=== PATIENT | male | born 1970 | race Caucasian/White ===

== ENCOUNTER 2018-09-22 09:51 | Emergency (ER) | payer SELFPAY ==
[2018-09-22] MEDS ORDERED: KETOROLAC 30 MG/ML INJ ONE (11:29)
[2018-09-22 11:41] LABS: Absolute Lymphocytes (CBC) 1.5 K/uL (0.7-4.9); Absolute Monocytes 0.4 K/uL (0.1-1.3); Absolute Neutrophil 3.8 K/uL (1.8-8.0); Basophils % 0.8 % (0-1.3); Eosinophils % 0.4 % (0-4.4); Hematocrit 41.4 % (39.6-49.0); Lymphocytes % 26.5 % (15.3-44.8); MPV 10.3 fL (7.6-11.3); Monocytes % 7.6 % (3.3-12.3); RBC Red Blood Cell Count 4.28 M/uL (4.33-5.43)
[2018-09-22 12:01] LABS: ALT/SGPT 78 U/L (12-78); AST/SGOT 97 U/L (15-37); Albumin 2.9 g/dL (3.4-5.0); Alkaline Phosphatase 125 U/L (45-117); BUN Blood Urea Nitrogen 5 mg/dL (7-18); Bicarbonate 24 mmol/L (21-32); Bilirubin Direct 0.2 mg/dL (0-0.2); Bilirubin Total 0.6 mg/dL (0.2-1.0); Glucose Level 101 mg/dL (74-106); Lipase 349 U/L (73-393); Potassium 3.7 mmol/L (3.5-5.1); Protein, Total 7.8 g/dL (6.4-8.2); Sodium Level 138 mmol/L (136-145)
--- NOTE | 2018-09-22 12:21 | ER ---
Nurse's Notes [facility] Name: Mk Leonardo II Age: 48 yrs Sex: Male : 1970 Arrival Date: 09/22/2018 Time: 09:53 Bed 7 Private MD: None, None Diagnosis: Unspecified hemorrhoids Presentation: 09/22 10:08 Presenting complaint: Patient states: bright red rectal bleeding since yesterday around mid day. pt used prepraration H and it got worse. today he states he has soaked thru several pairs of underwear and pants. Transition of care: patient was not received from another setting of care. Onset of symptoms was September 21, 2018 at 12:00. Risk Assessment: Do you want to hurt yourself or someone else? Patient reports no desire to harm self or others. Initial Sepsis Screen: Does the patient meet any 2 criteria? No. Patient's initial sepsis screen is negative. Does the patient have a suspected source of infection? No. Patient's initial sepsis screen is negative. Care prior to arrival: None. 10:08 Method Of Arrival: Ambulatory 10:08 Acuity: QUINCY 3 Triage Assessment: 10:12 General: Appears in no apparent distress. uncomfortable, Behavior is calm, cooperative, ch appropriate for age. Pain: Complains of pain in anus Pain currently is 4 out of 10 on a pain scale. at worst was 9 out of 10 on a pain scale. Neuro: No deficits noted. Respiratory: Airway is patent Respiratory effort is even, unlabored, Breath sounds are coarse bilaterally. GI: Abdomen is flat, non-distended, Bowel sounds present X 4 quads. Abd is soft and non tender X 4 quads. Reports rectal bleeding. Derm: Skin is pink, warm \T\ dry. Musculoskeletal: No signs and/or symptoms reported regarding the musculoskeletal system. Historical: - Allergies: 10:12 No Known Allergies; ch - Home Meds: 10:12 Norvasc Oral [Active]; losartan oral oral [Active]; CoQ-10 100 mg oral cap [Active]; ch nugenix [Active]; - PMHx: 10:12 Hypertension; angina 20 yrs ago resolved; hemorrhoids; ch - PSHx: 10:12 Hernia repair; Vasectomy; - Immunization history:: Adult Immunizations up to date, Pneumococcal vaccine is not up to date, Flu vaccine is not up to date. - Social history:: Smoking status: Patient uses tobacco products, smokes one pack cigarettes per day. Patient uses alcohol, claims drinking about a 6 pack/day. patient/guardian reports chronic longstanding heavy alcohol consumption. Patient/guardian denies using street drugs, Patient/guardian denies using alcohol, The patient lives with family. - Ebola Screening: : Patient negative for fever greater than or equal to 101.5 degrees Fahrenheit, and additional compatible Ebola Virus Disease symptoms Patient denies exposure to infectious person Patient denies travel to an Ebola-affected area in the 21 days before illness onset No symptoms or risks identified at this time. - Family history:: not pertinent. Screenin:14 Abuse screen: Denies threats or abuse. Denies injuries from another. Nutritional screening: No deficits noted. Tuberculosis screening: No symptoms or risk factors identified. Fall Risk None identified. Assessment: 10:14 Reassessment: Patient appears in no apparent distress at this time. No changes from previously documented assessment. Patient and/or family updated on plan of care and expected duration. Pain level reassessed. Patient is alert, oriented x 3, equal unlabored respirations, skin warm/dry/pink. 11:30 Reassessment: Patient appears in no apparent distress at this time. No changes from previously documented assessment. Patient and/or family updated on plan of care and expected duration. Pain level reassessed. Patient is alert, oriented x 3, equal unlabored respirations, skin warm/dry/pink. 12:30 Reassessment: Patient appears in no apparent distress at this time. Patient and/or family updated on plan of care and expected duration. Pain level reassessed. Patient is alert, oriented x 3, equal unlabored respirations, skin warm/dry/pink. Patient states symptoms have not improved. Vital Signs: 10:12 BP 150 / 79; Pulse 100; Resp 16; Temp 98.6; Pulse Ox 99% on R/A; Weight 80.29 kg; Height 5 ft. 7 in. (170.18 cm); Pain 4/10; 12:50 BP 148 / 86; Pulse 92; Resp 14; Temp 98.1; Pulse Ox 99% on R/A; Pain 4/10; 10:12 Body Mass Index 27.72 (80.29 kg, 170.18 cm) ED Course: 09:53 Patient arrived in ED. mr 09:53 None, None is Private Physician. mr 10:07 Ronald Cook MD is Attending Physician. ma2 10:08 Dayana Kahn, RN is Primary Nurse. 10:10 Triage completed. ch 10:12 Arm band placed on left wrist. Patient placed in an exam room, on a stretcher, on pulse oximetry. 10:14 No apparent distress. Resting quietly. ch 10:14 Patient has correct armband on for positive identification. Placed in gown. Bed in low ch position. Call light in reach. Adult w/ patient. Pulse ox on. NIBP on. Warm blanket given. 11:14 Inserted saline lock: 20 gauge in right antecubital area, using aseptic technique. pc1 12:19 Dante Sparks MD is Referral Physician. ma2 12:50 No provider procedures requiring assistance completed. IV discontinued, intact, ch bleeding controlled, No redness/swelling at site. Pressure dressing applied. Administered Medications: 11:18 Drug: TORadol 60 mg Route: IM; Site: right ventrogluteal; ch 12:41 Follow up: Response: No adverse reaction; No change in condition Outcome: 12:20 Discharge ordered by . ma2 12:50 Attestation : I agree with students charting. 12:50 Discharged to home ambulatory, with family. 12:50 Condition: stable 12:50 Discharge instructions given to patient, family, Instructed on discharge instructions, follow up and referral plans. no drinking with medication, no driving heavy equipment, medication usage, Demonstrated understanding of instructions, follow-up care, medications, Prescriptions given X 3. 13:03 Patient left the ED. Signatures: Dayana Kahn, RN Micheline Carmen ch Dante Cavazos RN RN Ronald Cook MD MD ma2 Cantu, Patrick pc1
--- NOTE | 2018-09-22 12:21 | EDPHYS ---
Physician Documentation [facility] Name: Mk Leonardo II Age: 48 yrs Sex: Male : 1970 Arrival Date: 09/22/2018 Time: 09:53 Bed 7 Private MD: None, None ED Physician Ronald Cook HPI: 09/22 12:15 This 48 yrs old Male presents to ER via Ambulatory with complaints of Rectal ma2 Bleeding. 12:15 The patient presents to the emergency department with bleeding from the rectum/anus, ma2 that is mild, pain in the rectal area, that is moderate. Onset: The symptoms/episode began/occurred gradually, 2 day(s) ago. Context: the patient has a known history of hemorrhoids. Associate signs and symptoms: Pertinent positives: constipation, Pertinent negatives: abdominal pain, diarrhea, dysuria, fever, lower GI bleeding. The patient has not experienced similar symptoms in the past. Historical: - Allergies: 10:12 No Known Allergies; ch - Home Meds: 10:12 Norvasc Oral [Active]; losartan oral oral [Active]; CoQ-10 100 mg oral cap [Active]; ch nugenix [Active]; - PMHx: 10:12 Hypertension; angina 20 yrs ago resolved; hemorrhoids; ch - PSHx: 10:12 Hernia repair; Vasectomy; ch - Immunization history:: Adult Immunizations up to date, Pneumococcal vaccine is not up to date, Flu vaccine is not up to date. - Social history:: Smoking status: Patient uses tobacco products, smokes one pack cigarettes per day. Patient uses alcohol, claims drinking about a 6 pack/day. patient/guardian reports chronic longstanding heavy alcohol consumption. Patient/guardian denies using street drugs, Patient/guardian denies using alcohol, The patient lives with family. - Ebola Screening: : Patient negative for fever greater than or equal to 101.5 degrees Fahrenheit, and additional compatible Ebola Virus Disease symptoms Patient denies exposure to infectious person Patient denies travel to an Ebola-affected area in the 21 days before illness onset No symptoms or risks identified at this time. - Family history:: not pertinent. ROS: 12:15 Constitutional: Negative for fever, chills, and weight loss. ma2 12:15 Cardiovascular: Negative for chest pain, palpitations, and edema, Respiratory: Negative for shortness of breath, cough, wheezing, and pleuritic chest pain, Abdomen/GI: Negative for abdominal pain, nausea, diarrhea, and constipation, : Negative for injury, bleeding, discharge, and swelling, MS/Extremity: Negative for injury and deformity, Allergy/Immunology: Negative for hives, rash, and allergies, Endocrine: Negative for neck swelling, polydipsia, polyuria, polyphagia, and marked weight changes. 12:15 Abdomen/GI: Positive for rectal pain, rectal bleeding, Negative for nausea, vomiting, and diarrhea, diarrhea, anorexia, dysphagia. 12:15 : Positive for 12:15 : Positive for Negative for 12:15 All other systems are negative. Exam: 12:15 Constitutional: This is a well developed, well nourished patient who is awake, alert, ma2 and in no acute distress. Chest/axilla: Normal chest wall appearance and motion. Nontender with no deformity. No lesions are appreciated. Cardiovascular: Regular rate and rhythm with a normal S1 and S2. No gallops, murmurs, or rubs. Normal PMI, no JVD. No pulse deficits. Respiratory: Lungs have equal breath sounds bilaterally, clear to auscultation and percussion. No rales, rhonchi or wheezes noted. No increased work of breathing, no retractions or nasal flaring. Abdomen/GI: Soft, non-tender, with normal bowel sounds. No distension or tympany. No guarding or rebound. No evidence of tenderness throughout. Skin: Warm, dry with normal turgor. Normal color with no rashes, no lesions, and no evidence of cellulitis. MS/ Extremity: Pulses equal, no cyanosis. Neurovascular intact. Full, normal range of motion. Neuro: Awake and alert, GCS 15, oriented to person, place, time, and situation. Cranial nerves II-XII grossly intact. Motor strength 5/5 in all extremities. Sensory grossly intact. Cerebellar exam normal. Normal gait. 12:15 Abdomen/GI: Inspection: abdomen appears normal, Palpation: soft, Rectal exam: Prostate: normal, rectal tone normal, hemorrhoid(s), external, with inflammation, with pain, without bleeding, without thrombosis, Hernia: not appreciated. Vital Signs: 10:12 BP 150 / 79; Pulse 100; Resp 16; Temp 98.6; Pulse Ox 99% on R/A; Weight 80.29 kg; ch Height 5 ft. 7 in. (170.18 cm); Pain 4/10; 12:50 BP 148 / 86; Pulse 92; Resp 14; Temp 98.1; Pulse Ox 99% on R/A; Pain 4/10; ch 10:12 Body Mass Index 27.72 (80.29 kg, 170.18 cm) ch MDM: 10:07 Patient medically screened. ma2 12:15 Differential diagnosis: hemorrhoids. Data reviewed: vital signs, nurses notes. ma2 Counseling: I had a detailed discussion with the patient and/or guardian regarding: the historical points, exam findings, and any diagnostic results supporting the discharge/admit diagnosis, the presence of at least one elevated blood pressure reading (>120/80) during this emergency department visit, the need for outpatient follow up. ED course: no active bleeding, pain controlled here vs wnl, no melena, hb wnl . 09/22 10:19 Order name: Basic Metabolic Panel; Complete Time: 12:14 tn2 09/22 10:19 Order name: CBC with Diff ma2 09/22 10:19 Order name: Creatinine for Radiology; Complete Time: 12:14 tn2 09/22 10:19 Order name: Hepatic Function; Complete Time: 12:14 tn2 09/22 10:19 Order name: Lipase; Complete Time: 12:14 tn2 09/22 10:19 Order name: IV Saline Lock; Complete Time: 12:42 tn2 09/22 10:19 Order name: Labs collected and sent; Complete Time: 12:42 tn2 09/22 11:49 Order name: CBC Smear Scan EDMS Administered Medications: 11:18 Drug: TORadol 60 mg Route: IM; Site: right ventrogluteal; ch 12:41 Follow up: Response: No adverse reaction; No change in condition ch Disposition: 09/22/18 12:20 Discharged to Home. Impression: Unspecified hemorrhoids. - Condition is Stable. - Discharge Instructions: High-Fiber Diet, Hemorrhoids, Uxil-nh-Ihoz, Disposable Sitz Bath, Nonsurgical Procedures for Hemorrhoids, Care After. - Prescriptions for Colace 100 mg Oral Tablet - take 1 tablet by ORAL route every 12 hours; 14 tablet. Tylenol- Codeine #3 300-30 mg Oral Tablet - take 2 tablet by ORAL route every 6 hours As needed; 30 tablet. Lidocaine Viscous - Apply to affected area 1 application by RECTAL route 2-4 times daily for 8-10 days; 1 box. - Work release form, Medication Reconciliation Form, Thank You Letter, Antibiotic Education, Prescription Opioid Use form. - Follow up: Dante Sparks MD; When: Tomorrow; Reason: Continuance of care. Signatures: Dispatcher [employer] EDPR Dayana Kahn RN RN Dante Cavazos RN RN Ronald Cook MD MD ma2 Corrections: (The following items were deleted from the chart) 11:40 10:32 CBC without Diff+H.LAB.BRZ ordered. EDPR EDMS 12:21 12:20 09/22/2018 12:20 Discharged to Home. Impression: Hemorrhoids in the puerperium. ma2 Condition is Stable. Prescriptions for Colace 100 mg Oral Tablet - take 1 tablet by ORAL route every 12 hours; 14 tablet, Tylenol-Codeine #3 300-30 mg Oral Tablet - take 2 tablet by ORAL route every 6 hours As needed; 30 tablet. and Forms are Medication Reconciliation Form, Thank You Letter, Antibiotic Education, Prescription Opioid Use. Follow up: Dante Sparks; When: Tomorrow; Reason: Continuance of care. ma2 13:03 12:21 09/22/2018 12:20 Discharged to Home. Impression: Unspecified hemorrhoids. hj Condition is Stable. Prescriptions for Colace 100 mg Oral Tablet - take 1 tablet by ORAL route every 12 hours; 14 tablet, Tylenol-Codeine #3 300-30 mg Oral Tablet - take 2 tablet by ORAL route every 6 hours As needed; 30 tablet. and Forms are Medication Reconciliation Form, Thank You Letter, Antibiotic Education, Prescription Opioid Use. Follow up: Dante Sparks; When: Tomorrow; Reason: Continuance of care. ma2
[2018-09-22 14:13] LABS: Platelet Estimate ADEQ; Urine White Blood Cell Casts OK
[2018-09-22 14:14] LABS: Blood Morphology Comment NOT SEEN (NOT SEEN)
== END 2018-09-22 13:03 | disposition home or self-care (01) ==
LOC: ER 09:51
DX: K64.9 Unspecified hemorrhoids (principal); I10 Essential (primary) hypertension; F17.210 Nicotine dependence, cigarettes, uncomplicated
CPT/HCPCS: 36415; 80048; 80076; 83690; 85025; 96372; 99284

== ENCOUNTER 2024-05-22 09:56 | Emergency (ER) | payer OTHER ==
--- NOTE | 2024-05-22 11:35 | RAD REPORT ---
EXAMINATION: ULTRASOUND DUPLEX OF SCROTUM AND TESTICLES CLINICAL INDICATION: Male, 54 years, SWELLING TECHNIQUE: Duplex scan of the scrotal contents was performed including real-time color and spectral D oppler ultrasonography with arterial inflow and venous outflow. COMPARISON: No prior exam. FINDINGS: RIGHT TESTICLE AND EPIDIDYMIS: The right testicle is normal in size, measuring 2.8 x 2.0 x 2.7 cm. Normal, homogeneous echotexture with no focal lesion seen. The right epididymis is normal. Color Doppler flow in the right testicle is normal. Normal arterial and venous spectral Doppler waveforms are identified. Large right hydrocele. No varicocele. LEFT TESTICLE AND EPIDIDYMIS: The left testicle is normal in size, measuring 3.2 x 2.1 x 2.7 cm. Normal, homogeneous echotexture with no focal lesion seen. The left epididymis is normal. Color Doppler flow in the left testicle is normal. Normal arterial and venous spectral Doppler waveforms are identified. Mild left hydrocele. No varicocele. INGUINAL CANAL: No hernia. ADDITIONAL FINDINGS: None. IMPRESSION: Large right and mild left hydroceles. No suspicious parenchymal testicular findings.
[2024-05-22 11:50] LABS: Specific Gravity 1.012 (1.005-1.030); Sqamous Epithelial None Seen /HPF (None Seen); Urine Bacteria None Seen /HPF (<20); Urine Bilirubin NEGATIVE (Negative); Urine Blood Negative (Negative); Urine Clarity Clear (Clear); Urine Color Light-Yellow (Yellow); Urine Culture Reflex Order NOT NEEDED; Urine Glucose NEGATIVE (Negative); Urine Ketones NEGATIVE (Negative); Urine Micro Reflex YN NO BILL MICROSCOPIC; Urine Nitrite NEGATIVE (Negative); Urine Protein TRACE (Negative); Urine RBC <5 /HPF (None Seen); Urine Urobilinogen Normal (Normal); Urine WBC None Seen /HPF (<5)
--- NOTE | 2024-05-22 12:50 | ER ---
Nurse's Notes [facility] Name: Mk Leonardo II Age: 54 yrs Sex: Male : 1970 Arrival Date: 05/22/2024 Time: 09:56 Bed 6 Private MD: Diagnosis: Hydrocele, unspecified Presentation: 05/22 10:06 Onset of symptoms was 2022. aa5 10:06 Acuity: QUINCY 3 aa5 10:06 Chief complaint: Patient states: sent here by [facility] clinic for swelling to right testicle aa5 x 1 yr ago. Coronavirus screen: At this time, the client does not indicate any symptoms associated with coronavirus-19. Ebola Screen: Patient denies travel to an Ebola-affected area in the 21 days before illness onset. Initial Sepsis Screen: Does the patient meet any 2 criteria? No. Patient's initial sepsis screen is negative. Does the patient have a suspected source of infection? No. Patient's initial sepsis screen is negative. Risk Assessment: Do you want to hurt yourself or someone else? Patient reports no desire to harm self or others. 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 - Infectious Disease History:: Denies. - Social history:: Smoking status: Patient reports the use of cigarette tobacco products. Screenin:[address] [facility] ED Fall Risk Assessment (Adult) History of falling in the last 3 months, tm6 including since admission No falls in past 3 months (0 pts) Confusion or Disorientation No (0 pts) Intoxicated or Sedated No (0 pts) Impaired Gait No (0 pts) Mobility Assist Device Used No (0 pt) Altered Elimination No (0 pt) Score/Fall Risk Level 0 - 2 = Low Risk Oriented to surroundings, Maintained a safe environment, Educated pt \T\ family on fall prevention, incl call for assistance when getting out of bed. Abuse screen: Denies threats or abuse. Denies injuries from another. Nutritional screening: No deficits noted. Tuberculosis screening: No symptoms or risk factors identified. Assessment: 10:17 General: Appears in no apparent distress. Behavior is calm, cooperative. Pain: tm6 Complains of pain in groin Pain does not radiate. Pain currently is 0 out of 10 on a pain scale. Pain began one year ago Aggravated by touch. Neuro: Level of Consciousness is awake, alert, obeys commands, Oriented to person, place, time, situation. Cardiovascular: Patient's skin is warm and dry. Respiratory: Airway is patent Respiratory effort is even, unlabored, Respiratory pattern is regular, symmetrical. GI: No signs and/or symptoms were reported involving the gastrointestinal system. Abdomen is flat, non-distended. : Reports pain scrotum, since one year ago, hurts only to touch. Denies pain with urination or intercourse. EENT: No signs and/or symptoms were reported regarding the EENT system. Derm: No signs and/or symptoms reported regarding the dermatologic system. Musculoskeletal: No signs and/or symptoms reported regarding the musculoskeletal system. 11:28 Reassessment: Pt back from US at this time. Awaiting results. ss Vital Signs: 10:06 BP 142 / 80; Pulse 77; Resp 18 S; Temp 97.2(TE); Pulse Ox 96% on R/A; Weight 77.56 kg aa5 (R); Height 5 ft. 7 in. (R); 12:04 BP 144 / 84; Pulse 65; Resp 16; Pulse Ox 97% on R/A; ss 10:06 Body Mass Index 26.78 (77.56 kg, 170.18 cm) aa5 ED Course: 10:00 Patient arrived in ED. mg5 10:02 Elizabeth Santamaria MD is Attending Physician. gb1 10:07 Arm band placed on. aa5 10:10 Triage completed. aa5 10:17 Grzegorz Bravo, RN is Primary Nurse. tm6 10:17 Patient has correct armband on for positive identification. Placed in gown. Bed in low tm6 position. Call light in reach. Side rails up X 1. Provided Education on: plan of care, use of call ernandez. Client placed on continuous cardiac and pulse oximetry monitoring. NIBP monitoring applied. Pulse ox on. NIBP on. Door closed. Noise minimized. 11:11 Attending Physician role handed off by Elizabeth Santamaria MD ec2 11:11 Luis Fernando Rosenberg MD is Attending Physician. ec2 11:31 Scrotum Testicles In Process Unspecified. EDMS 12:49 Johny Villafana MD is Referral Physician. ec2 12:54 No provider procedures requiring assistance completed. Patient did not have IV access hb during this emergency room visit. Administered Medications: No medications were administered Medication: 10:17 VIS not applicable for this client. tm6 Outcome: 12:49 Discharge ordered by MD. ec2 12:54 Discharged to home ambulatory, with significant other, hb 12:54 Condition: stable 12:54 Discharge instructions given to patient, significant other, Instructed on discharge instructions, follow up and referral plans. Demonstrated understanding of instructions, follow-up care, 12:54 Patient left the ED. hb Signatures: Dispatcher [employer] YUENE Yessica Lowery, RN RN aa5 Anny Manzo RN RN India Sebastian RN RN Kate Villasenor mg5 Luis Fernando Rosenberg MD MD ec2 Elizabeth Santamaria MD MD gb1 Grzegorz Bravo RN RN tm6
--- NOTE | 2024-05-22 12:50 | EDPHYS ---
Physician Documentation [facility] Name: Mk Leonardo II Age: 54 yrs Sex: Male : 1970 Arrival Date: 05/22/2024 Time: 09:56 Bed 6 Private MD: ED Physician Luis Fernando Rosenberg HPI: 05/22 12:48 This 54 yrs old Male presents to ER via Ambulatory with complaints of ec2 Testicular Swelling. 12:48 Patient arrives today for testicular pain and discomfort. Reports has been having pain ec2 for the past year. Reports some swelling. No trauma or injuries.. Historical: - Allergies: 10:07 Codeine; aa5 - PMHx: 10:07 angina 20 yrs ago resolved; hemorrhoids; Hypertension; Cirrhosis of liver; Kidney aa5 Disease; emphysema; - PSHx: 10:07 hernia; Vasectomy; aa5 - Immunization history:: Adult Immunizations unknown. - Infectious Disease History:: Denies. - Social history:: Smoking status: Patient reports the use of cigarette tobacco products. ROS: 12:48 Constitutional: as per hpi ec2 Exam: 12:48 Constitutional: GEN: NAD Head: atraumatic Eyes: EOMI Ears: External ears are ec2 normal. CV: regular rate LUNGS: no respiratory distress ABD: non-distended. : Intact cremasteric reflex with swelling to the right testicle appreciated. No erythema or crepitus appreciated. SKIN: no evidence of rashes MSK: no evidence of trauma Vital Signs: 10:06 BP 142 / 80; Pulse 77; Resp 18 S; Temp 97.2(TE); Pulse Ox 96% on R/A; Weight 77.56 kg aa5 (R); Height 5 ft. 7 in. (R); 12:04 BP 144 / 84; Pulse 65; Resp 16; Pulse Ox 97% on R/A; ss 10:06 Body Mass Index 26.78 (77.56 kg, 170.18 cm) aa5 MDM: 10:12 Medical Screening Exam initiated gb1 12:48 Data reviewed: vital signs. ED course: Arrives today for testicular pain. Examination ec2 as above. Ultrasound shows hydrocele. Will have patient follow-up with urology. Patient discharged home. Return precautions given.. 05/22 11:12 Order name: UAM; Complete Time: 12:09 gb1 05/22 11:12 Order name: US Scrotum Testicles; Complete Time: 12:09 gb1 Administered Medications: No medications were administered Disposition Summary: 05/22/24 12:49 Discharge Ordered Notes: Location: Home ec2 Condition: Stable ec2 Diagnosis - Hydrocele, unspecified ec2 Followup: ec2 - With: Johny Villafana MD - When: - Reason: Recheck today's complaints Discharge Instructions: - Discharge Summary Sheet ec2 - Hydrocele, Adult ec2 Forms: - Medication Reconciliation Form ec2 - Antibiotic Education ec2 - Prescription Opioid Use ec2 - Patient Portal Instructions ec2 - Leadership Thank You Letter ec2 Signatures: Dispatcher [employer] Yessica Johnson RN RN aa5 Luis Fernando Rosenberg MD MD ec2 Elizabeth Santamaria MD MD gb1 Corrections: (The following items were deleted from the chart) 11:12 11:12 Urinalysis W/Microscopic+U.LAB.BRZ ordered. YUEMO YUEMO 12:48 12:48 Patient arrives today for testicular pain and discomfort.. ec2 ec2
[2024-05-22 12:59] VITALS: TEMP 97.2
[2024-05-22 13:00] VITALS: BP 144/84; O2SAT 97
== END 2024-05-22 12:54 | disposition home or self-care (01) ==
LOC: ER 09:56
DX: N43.3 Hydrocele, unspecified (principal); Z72.0 Tobacco use
CPT/HCPCS: 76870; 81001; 99283